=== PATIENT | female | born 1935 | race Caucasian/White ===

== ENCOUNTER → 2017-08-20 12:46 | Outpatient (CLI) | payer MEDICARE, OTHER, SELFPAY ==
--- NOTE | 2017-08-20 | DI.MG.S_ITS ---
UNILATERAL LEFT DIGITAL DIAGNOSTIC MAMMOGRAM 3D/2D WITH ADDITIONAL VIEWS: 08/20/2017 CLINICAL: Additional evaluation requested from prior study. Comparison is made to exams dated: 07/22/2017 mammogram, 06/04/2016 mammogram - [facility], and 07/22/2013 mammogram - [facility]. There are scattered fibroglandular elements in the left breast. Prior mammographic finding is no longer seen in the left breast. No significant masses, calcifications, or other findings are seen in the breast. IMPRESSION: INCOMPLETE: NEEDS ADDITIONAL IMAGING EVALUATION Questoined left breast finding resolves on further imaging. Recommend confirmation with ultrasound. This exam was interpreted at Station ID: [id number]. NOTE: For mammograms, a report in lay terms will be sent to the patient. Approximately 15% of breast malignancies will not be visualized mammographically. In the management of a palpable breast mass, a negative mammogram must not discourage biopsy of a clinically suspicious lesion. Electronically Signed By: Gen Tijerina M.D. cj/:08/20/2017 13:55:08 ACR BI-RADS Category 0: Incomplete [id number]
--- NOTE | 2017-08-20 | DI.US.S_ITS ---
ULTRASOUND OF LEFT BREAST: 08/20/2017 CLINICAL: Follow up from addtional views. Comparison is made to exams dated: 08/20/2017 mammogram - [facility], 07/22/2017 mammogram, and 06/04/2016 mammogram - [facility]. Color flow ultrasound of the left breast was performed. Das scale images of the real-time examination were reviewed. Prior mammographic finding is no longer seen left breast. IMPRESSION: NEGATIVE There is no sonographic evidence of malignancy. A 1 year screening mammogram is recommended. This exam was interpreted at Station ID: [id number]. Electronically Signed By: Gen brooks/manish:08/20/2017 16:23:54 letter sent: Normal Exam Ultrasound BI-RADS: 1 Negative
== END ==
PROVIDERS: Family Provider Internal Medicine; PCP Internal Medicine; Visit Provider Internal Medicine
DX: R92.8 Other abnormal and inconclusive findings on diagnostic imaging of breast (principal)
CPT/HCPCS: 76642; 77065; G0279

== ENCOUNTER → 2018-10-11 13:06 | Outpatient (CLI) | payer MEDICARE, OTHER, SELFPAY | PROVIDERS: Family Provider Internal Medicine; PCP Internal Medicine; Visit Provider Internal Medicine | DX: M85.80 Other specified disorders of bone density and structure, unspecified site (principal); Z78.0 Asymptomatic menopausal state; M85.832 Other specified disorders of bone density and structure, left forearm | CPT/HCPCS: 77080 ==

== ENCOUNTER → 2018-10-28 09:34 | Outpatient (CLI) | payer MEDICARE, OTHER, SELFPAY ==
--- NOTE | 2018-10-28 | DI.MRI.S_ITS ---
PROCEDURE: MR HEAD/BRAIN WO CON INDICATIONS: MEMORY LOSS TECHNIQUE: Non-contrast axial T1 spin echo, axial T2 fast spin echo, sagittal and axial FLAIR, coronal T2 fast spin echo, axial gradient echo, axial diffusion and ADC through the brain. COMPARISON: None. FINDINGS: Image quality: There is susceptibility artifact associated with dental hardware. CSF spaces: Ventricles appear symmetric in size and shape. Basal cisterns are patent. No extra-axial fluid collections. Brain: No intracranial bleeds or mass effects. There is cerebral volume loss for age. There are periventricular and deep white matter chronic small vessel ischemic changes. Brainstem appears normal. Diffusion-weighted images show no acute ischemic insults. No chronic ischemic insults. Normal intravascular flow voids are present. 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 Calvarial bone marrow is normal in signal. Orbits are normal. Note is made of bilateral lens replacements. Sinuses: Sinuses and mastoids are clear. IMPRESSION: Normal intracranial study for age, with brain parenchymal volume loss and chronic small vessel ischemic change. No findings of acute or subacute infarction can be seen. 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 Dictated by: Michael Washington M.D. on 10/28/2018 at 10:17 Approved by: Michael Washington M.D. on 10/28/2018 at 10:19
== END ==
PROVIDERS: PCP Internal Medicine; Visit Provider Internal Medicine
DX: R41.3 Other amnesia (principal); L98.9 Disorder of the skin and subcutaneous tissue, unspecified
CPT/HCPCS: 70551

== ENCOUNTER 2019-10-21 08:27 | Outpatient (CLI) | payer MEDICARE, OTHER, SELFPAY ==
--- NOTE | 2019-10-21 | DI.RAD.S_ITS ---
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 TECHNIQUE: The indications, alternatives, benefits, risks and complications of the procedure were explained to the patient. Written informed consent was obtained and placed in the chart. The patient was placed in a prone position on the fluoroscopy table, and a level was chosen for percutaneous access under fluoroscopic guidance. The skin was prepped and draped in a sterile fashion. After local anaesthetic, a spinal needle was then used to enter the intrathecal space, with return of clear cerebrospinal fluid. 15 mL of Isovue M-200 were administered intrathecally under fluoroscopic visualization. The needle was then withdrawn, and a bandage applied to the puncture site. Fluoroscopic spot films were then acquired in various positions. FINDINGS: Standing frontal, lateral, and oblique views demonstrate no significant central canal stenoses. Access level: Right interlaminar notch L 3 level. Medications: 1% lidocaine for local anaesthesia. Complications: None. Patient was transferred to CT for subsequent CT myelogram. IMPRESSION: Successful fluoroscopically guided administration of iodinated contrast into the lumbar spine central canal for CT myelogram. Dictated by: Diallo Blake M.D. on 10/21/2019 at 11:11 Approved by: Diallo Blake M.D. on 10/21/2019 at 11:18
--- NOTE | 2019-10-21 | DI.CT.S_ITS ---
PROCEDURE: CT LUMBAR SPINE W CON INDICATIONS: Spondylosis without myelopathy or radiculopathy, l TECHNIQUE: After the intrathecal administration of 15 mL intrathecal contrast, 3 mm thick sections acquired from T12 to the sacrum. Sagittal and coronal reformats were then constructed. For radiation dose reduction, the following was used: automated exposure control. COMPARISON: [facility], RF, FL MYELOGRAM SPINE LUMBOSACRAL, 10/21/2019, 9:08. [facility], CT, ABDOMEN/PELVIS WITH CONTRAST, 10/27/2008, 11:37. FINDINGS: Image quality: Excellent. Bones: No spondylolysis or spondylolisthesis. No suspicious bony lesions. No acute fractures. Soft tissues: No retroperitoneal masses. Visualized aorta demonstrates normal caliber. Atherosclerotic calcification is noted. Mild to moderate levoconvex scoliotic curvature is noted. Minimal retrolisthesis is seen at the L3-L4 level and the L4-5 level. T12-L1: No significant abnormality is seen. L1-L2: The disc height is well preserved. Mild disc bulge is seen, with a mild central disc protrusion. No significant neural foraminal narrowing is seen. Minimal central canal narrowing is seen. L2-L3: At least moderate loss of disc height is seen. Vacuum disc phenomenon is seen at this level. Endplate irregularity and sclerosis can be seen. At least moderate disc bulge is seen, with a central disc protrusion. There is calcification/ossification seen of the disc material posteriorly, as on series 4, image 23. There is at least moderate bilateral neural foraminal narrowing seen. At least moderate central canal narrowing is seen. L3-L4: At least moderate loss of disc height is seen. Vacuum disc phenomenon is seen at this level. Endplate irregularity and sclerosis can be seen. At least moderate disc bulge is seen, which is eccentric to the right. Posteriorly projected endplate osteophytes are seen. There is moderate left-sided and moderate to severe right-sided neural foraminal narrowing seen. There is a degree of compression seen upon the exiting right L3 nerve root. Moderate central canal narrowing is seen. L4-L5: Moderate loss of disc height is seen. At least moderate disc bulge is seen. Vacuum disc phenomenon is seen at this level. Mild to moderate facet hypertrophy is seen. Moderate to severe bilateral neural foraminal narrowing is seen. There is a degree of compression seen upon the exiting nerve roots. Mild to moderate central canal narrowing is seen. L5-S1: Sect-ld-[id number] loss of disc height is seen. Vacuum disc phenomenon is seen at this level. Moderate disc bulge is seen, which is eccentric to the right. Moderate prominent facet hypertrophy is seen. There is moderate to severe bilateral neural foraminal narrowing seen, left worse than right. There is a degree of compression seen upon the exiting nerve roots. At least moderate central canal narrowing is seen. Miscellaneous: Nerve roots appear unremarkable throughout. No nerve root clumping to suggest arachnoiditis. A right-sided sacral stimulator is partially seen. IMPRESSION: Multiple levels of lumbar spine degenerative change are seen, which are most prominent inferiorly. Moderate to severe bilateral neural foraminal narrowing is seen at L4-5 and L5-S1 and there is moderate to severe right-sided neural foraminal narrowing seen at L3-4. Associated exiting nerve root compression can be seen at these sites. Mild to moderate levoconvex lumbar scoliosis. Incidental note is made of: Right-sided sacral stimulator Dictated by: Michael Washington M.D. on 10/21/2019 at 12:06 Approved by: Michael Washington M.D. on 10/21/2019 at 12:12
[2019-10-21 08:53] VITALS: BP 127/73; PULSE 67; RESP 16; TEMP 36.6; O2SAT 96; BMI 22.8
[2019-10-21 09:28] LABS: Platelet Count 302 X10^3/uL (150-400)
[2019-10-21 09:34] LABS: INR 0.9 (0.9-1.3); Prothrombin Time 10.5 SECONDS (10.1-12.7)
[2019-10-21 09:37] LABS: PTT Partial Thromboplastin Tim 29 SECONDS (26.4-36.2)
[2019-10-21 11:00] VITALS: BP 131/67; PULSE 71; RESP 16; TEMP 37.1; O2SAT 98
[2019-10-21 11:30] VITALS: BP 122/68; PULSE 74; RESP 16; TEMP 37; O2SAT 97
[2019-10-21 12:00] VITALS: BP 118/71; PULSE 69; RESP 16; TEMP 36.7; O2SAT 97
--- NOTE | 2019-10-21 12:11 | SUR.PHASEII ---
Pt asymptomatic, laying flat, VSS, and drinking water.
[2019-10-21 13:07] VITALS: BP 116/60; PULSE 74; RESP 20; TEMP 37.1; O2SAT 97
--- NOTE | 2019-10-21 13:08 | SUR.PHASEII ---
Pt in stable condition, dc for ELIDIA [place]. VSS, iv dcd site clear, pt up and ambulating gait steady and drinking fluids without problems. Up to BR and Voiding without issues. Dcd via wc to car at curbside and .
== END 2019-10-21 13:19 | disposition home or self-care (01) ==
LOC: OR 08:30
PROVIDERS: PCP Internal Medicine; Referring Provider Physical Medicine & Rehabilitation; Visit Provider Physical Medicine & Rehabilitation
DX: M47.26 Other spondylosis with radiculopathy, lumbar region (principal); M81.0 Age-related osteoporosis without current pathological fracture; R79.1 Abnormal coagulation profile
CPT/HCPCS: 72132; 72265; 85049; 85610; 85730

== ENCOUNTER → 2019-11-01 18:23 | Outpatient (ROUT) | payer MEDICARE, OTHER, SELFPAY ==
[2019-11-01 19:34] LABS: Alanine Aminotransferase 18 IU/L (<35); Albumin 4.6 g/dL (3.5-5.0); Albumin Globulin Ratio 1.4 (1.0-2.8); Alkaline Phosphatase 81 U/L (38-126); Aspartate Aminotransferase 34 IU/L (14-36); BUN Creatinine Ratio 26.7 (6-22); Bilirubin Total 0.8 mg/dL (0.2-1.3); Blood Urea Nitrogen 16 mg/dL (7-17); Calcium 10.5 mg/dL (8.4-10.2); Carbon Dioxide 27 mmol/L (22-32); Chloride 104 mmol/L (98-107); Estimated Glomerular Filt Rate > 60.0 mL/min (>60); Globulin 3.2 g/dL (1.7-4.1); Glucose 80 mg/dL (80-110); HDL Cholesterol 51 mg/dL (40-60); HEMOLYSIS 32 (0-50); Potassium 4.6 mmol/L (3.4-5.1); Sodium 138 mmol/L (137-145); Total Protein 7.8 g/dL (6.3-8.2); Triglycerides 316 mg/dL (35-150)
[2019-11-01 19:55] LABS: TSH w/ Reflex to FT4 2.65 uIU/mL (0.47-4.68)
[2019-11-01 20:00] LABS: Cholesterol 353 mg/dL (140-199); LDL Cholesterol Calculated 239 mg/dL (<100)
== END ==
PROVIDERS: PCP Internal Medicine; Visit Provider Internal Medicine
DX: E03.9 Hypothyroidism, unspecified (principal); R41.3 Other amnesia; E78.5 Hyperlipidemia, unspecified
CPT/HCPCS: 80053; 80061; 84443

== ENCOUNTER → 2019-11-23 09:00 | Outpatient (CLI) | payer MEDICARE, OTHER, SELFPAY ==
[2019-11-24 16:36] LABS: COVID19 Sendout Not Detected (Not Detected)
== END ==
PROVIDERS: PCP Internal Medicine; Visit Provider Physician Assistant
DX: Z11.59 Encounter for screening for other viral diseases (principal)
CPT/HCPCS: 87635

== ENCOUNTER → 2020-01-10 20:18 | Outpatient (ROUT) | payer MEDICARE, OTHER, SELFPAY ==
[2020-01-10 20:52] LABS: BUN Creatinine Ratio 28.1 (6-22); Blood Urea Nitrogen 16 mg/dL (7-17); Carbon Dioxide 27 mmol/L (22-32); Chloride 105 mmol/L (98-107); Estimated Glomerular Filt Rate > 60.0 mL/min (>60); Glucose 109 mg/dL (80-110); HEMOLYSIS < 15 (0-50); Potassium 4.3 mmol/L (3.4-5.1); Sodium 138 mmol/L (137-145)
[2020-01-10 20:54] LABS: Add Manual Diff / Slide Review NO; Basophils Absolute Auto 100 /uL (0-100); Basophils Percent Auto 0.7 % (0-2); Eosinophils Absolute Auto 100 /uL (0-450); Eosinophils Percent Auto 1.3 % (2-4); Hematocrit 41.2 % (36-46); Hemoglobin 13.8 g/dL (12.0-16.0); Lymphocytes Absolute Auto 2200 /uL (1100-4500); Lymphocytes Percent Auto 26.5 % (25-40); Mean Corpuscular HGB Conc 33.4 % (30-36); Mean Corpuscular Hemoglobin 31.1 PG (26-34); Mean Corpuscular Volume 93.1 fL (80-100); Monocytes Absolute Auto 800 /uL (0-900); Monocytes Percent Auto 9.9 % (3-14); Neutrophils Absolute Auto 5000 /uL (1500-7000); Neutrophils Percent Auto 61.6 % (50-75); Platelet Count 340 X10^3/uL (150-400); Red Blood Cell Count 4.43 X10^6/uL (4.0-5.2); Red Cell Distribution Width 12.9 % (11.6-14.8); White Blood Cell Count 8.2 X10^3/uL (4.5-11.0)
== END ==
PROVIDERS: PCP Internal Medicine; Visit Provider Internal Medicine
DX: Z01.818 Encounter for other preprocedural examination (principal)
CPT/HCPCS: 80048; 85025